=== PATIENT | male | born 1990 | race Caucasian/White ===

== ENCOUNTER → 2024-10-06 11:07 | Outpatient (CLI) | payer OTHER, SELFPAY ==
--- NOTE | 2024-10-06 11:09 | DI.RAD.S_ITS ---
PROCEDURE: XR CHEST 2V INDICATIONS: Wheezing TECHNIQUE: 2 views of the chest were acquired. COMPARISON: None. FINDINGS AND IMPRESSION: Diffuse brog-td-kbtleedg peribronchial thickening likely bronchitis/atypical infection. No dense airspace disease or pleural effusions. Normal heart size. Degenerative osseous changes. Dictated by: Tye Santos M.D. on 10/06/2024 at 12:15 Approved by: Tye Santos M.D. on 10/06/2024 at 12:16
== END ==
LOC: RAD 11:09
PROVIDERS: Referring Provider Registered Nurse; Visit Provider Registered Nurse
DX: R06.2 Wheezing (principal)
CPT/HCPCS: 71046